=== PATIENT | male | born 2000 | race Caucasian/White ===

== ENCOUNTER 2022-05-29 00:22 | Emergency (ER) | payer BC, SELFPAY ==
--- NOTE | ~2022-05-29 | XR_ITS ---
EXAMINATION: XR ELBOW, LEFT CLINICAL INFORMATION: Pain. COMPARISON: None TECHNIQUE: Three views of the left elbow. FINDINGS: The bones and soft tissues are normal. No fracture or joint effusion. Alignment is anatomic. Joint spaces are maintained. XR/XR elbow LT min 3V IMPRESSION: Normal left elbow.
[2022-05-29 00:38] VITALS: BP 126/63; PULSE 84; RESP 18; TEMP 37.6; O2SAT 99; BMI 23.3
[2022-05-29 04:14] VITALS: BP 140/59; PULSE 81; RESP 16; TEMP 37.1; O2SAT 99
--- OUTSIDE RECORDS SUMMARY | 2022-05-29 04:43 | XMS_ITS ---
:2000 Author Organization [facility] Address [address] [place] [address] Care Team Providers Name Role Phone AICHA LANE Unavailable Unavailable PROBLEMS Unknown Problems ALLERGIES No Known Allergies ENCOUNTERS Encounter Location Date Diagnosis [facility] [address] [facility] [address] May, Encounter for screening [place], [place] for other viral diseases [id number] with and (suspected) exposure to other viral communicable dis eases Z20.828 [facility] - [address] May, Contact w [facility] and [place], [place] [phone] other viral comm unicable diseases Z20.828 [facility] - [address] May, Other cor onavirus as the [place] [id number] classified elsew here B97.[address] with and (suspected) exposure to other viral communicable dis eases Z20.828 [facility] - [address] May, Contact w [facility] and [facility], [place]suspected[place] [phone] other viral comm unicable diseases Z20.828 [facility] - [address] Apr, Contact w [facility] and [facility], [place] [phone] other viral comm unicable diseases Z20.828 and Encounter for sc reening for other viral diseases Z11.59 [facility] - [address] Apr, Contact w [place] and [place], [place] ([place] [phone] other viral comm unicable diseases Z20.828 IMMUNIZATIONS No Known Immunizations SOCIAL HISTORY Never Assessed REASON FOR REFERRAL FUNCTIONAL STATUS PLAN OF CARE Activity Details Follow Up prn Reason: VITAL SIGNS Temperature 97.7 degrees Fahrenheit 2020-05-31 MEDICATIONS Unknown Medications PROCEDURES Procedure Date Ordered Result Body Site SPECIMEN HANDLING Jun 09, 2020 SPECIMEN HANDLING May 26, 2020 Covid19 Testing - in house Apr 20, 2020 COVID-19 Rapid Antigen Testing Apr 26, 2020 Covid19 Testing - in house May 26, 2020 Covid19 Testing - in house Jun 09, 2020 COVID-19 Rapid Antigen Testing Jun 16, 2020 Covid19 Testing - in house May 31, 2020 RESULTS No Results REASON FOR VISIT Covid walk in, COVID 19 TESTING, covid test, COVOD TESTING , COVID 19 TESTING, COVID 19 TESTING, COVID 19 TESTING Insurance Providers [facility] Member Patient Patient Patient Patient Patient Subscriber Subscriber Subscriber Group Insurance Plan Plan Plan Plan ID Relationship Address Phone Name Date of ID Name Date of No Type Insurance Insurance Insurance Coverage to Subscriber Address Phone Name Dates Medicaid [phone] Medicaid self Charly [id number] [facility] [place] [id number]
--- NOTE | 2022-05-29 04:50 | ED.EXTPRO ---
HPI - Extremity Problem General Chief complaint: Extremity Injury, Upper Stated complaint: Arm inj Time Seen by Provider: 05/29/22 04:50 Source: patient Mode of arrival: ambulatory Limitations: no limitations History of Present Illness HPI Narrative: Patient comes to the emergency room complaining of left elbow swelling. Patient states he was in a hockey game and he got hit from behind him. Patient is able to flex and extend his elbow but it is getting swollen. Patient took Tylenol after the incident. Related Data Previous Rx's Medication Instructions Recorded ibuprofen 600 mg tablet 600 mg PO TID #10 tabs 05/29/22 Allergies Allergy/AdvReac Type Severity Reaction Status Date / Time No Known Allergies Allergy Verified 05/29/22 00:38 Review of Systems Review of Systems: Constitutional : No Weight loss, No Fever, No Chills, No Night Sweats, No Fatigue, No Malaise ENT/Mouth : No Hearing loss, No Ear Pain, No Nasal Congestion, No Sinus Pain, No Hoarseness, No sore throat, No Rhinorrhea, No Swallowing Difficulty Eyes: No Eye Pain, No Swelling, No Redness, No Foreign Body, No Discharge, No Vision Changes Cardiovascular : No Chest Pain, No SOB, No Dyspnea on Exertion, No Orthopnea, No Edema, No Palpitations Respiratory : No Cough, No Sputum, No Wheezing, No Smoke Exposure, No Dyspnea Gastrointestinal : No Nausea, No Vomiting, No Diarrhea, No Constipation, No abdominal Pain, No Hematochezia, No Melena Genitourinary : no irregular bleeding, No Dysuria, No Urinary Frequency, No Hematuria, No Urinary Incontinence, No Urgency, No Flank Pain, No Urinary Flow Changes, No Hesitancy Musculoskeletal : Complaining of left elbow pain and swelling, No Myalgias, No Joint Swelling Skin : No Skin Lesions, No rash Neuro : No Weakness, No Numbness, No Paresthesias, No Loss of Consciousness, No Dizziness, No Headache Psych : No Anxiety/Panic, No Depression, No SI/HI/AH/VH, No Social Issues, Heme/Lymph: No Bruising, No Bleeding,No Lymphadenopathy Endocrine : No Polyuria, No Polydipsia, No Temperature Intolerance PMFSH Social History Social History Advance Directives: No Advance Directives Information Provided: No Physical Exam Vital Signs: Vital Signs: Last Vital Signs Temp 98.7 F 05/29/22 04:14 Pulse 81 05/29/22 04:14 Resp 16 05/29/22 04:14 BP 140/59 H 05/29/22 04:14 Pulse Ox 99 05/29/22 04:14 O2 Del Method 05/29/22 04:14 BMI result Body Mass Index 23.3 Const: Other: Appearance: Alert. Oriented X3. No acute distress. Eyes: Pupils equal, round and reactive to light. ENT: Pharynx normal. Neck: Normal inspection. Neck supple. No lymph nodes noted. No crepitus CVS: Normal heart rate and rhythm. Pulses normal. Normal S1 and S2 Respiratory: No respiratory distress. Breath sounds normal. No Wheezing. No rales Abdomen: Soft and nontender. No rigidity. No distention. Skin: Skin warm and dry. Normal skin color. Normal skin turgor. Extremities: There is an effusion in the left elbow. Patient is able to flex and extend his elbow, no redness Neuro: Oriented X 3. No motor deficit. No sensory deficit. Moving all extremities. No slurred speech. CN 2 through 12 grossly intact Psych: calm, cooperative, normal affect Course Course Course Narrative: X-ray shows no joint effusion. However, patient does have an obvious effusion on physical exam. Patient is able to flex and extend his elbow, fracture is not suspected. However, if pain continues, patient will need an x-ray again in approximately 1 week. Patient was given ibuprofen, sling. MDM - Extremity (Nontraumatic) Imaging Data Elbow x-ray: Radiologist's impression: INDINGS: The bones and soft tissues are normal. No fracture or joint effusion. Alignment is anatomic. Joint spaces are maintained.? XR/XR elbow LT min 3V IMPRESSION: Normal left elbow. Discharge Plan Discharge Clinical Impression: Effusion of bursa of left elbow Patient Disposition: Home, Self-Care Instructions: Swollen Joint (ED) Additional Instructions: If the pain does not improve within a week, you may need a 2nd x-ray. Make sure you apply ice to your elbow for 15 minutes every 2 hours, make sure the ice is not in direct contact with the skin. Please follow-up with your primary care physician tomorrow. If you have any worsening or new symptoms, please return to the emergency room or call 911 Prescriptions: New ibuprofen 600 mg tablet 600 mg PO TID Qty: 10 0RF
== END 2022-05-29 05:03 | disposition home or self-care (01) ==
PROVIDERS: Emergency Provider Emergency Medicine
DX: M25.422 Effusion, left elbow (principal); M25.522 Pain in left elbow
CPT/HCPCS: 73080; 99283